=== PATIENT | female | born 1960 | race African-American/Black ===

== ENCOUNTER 2020-01-20 08:08 | Outpatient (CLI) | payer OTHER | END 2020-01-20 15:00 | disposition home or self-care (01) | LOC: LAB 08:08 | PROVIDERS: ATTEND Internal Medicine Hematology & Oncology | DX: D50.8 Other iron deficiency anemias (principal); D51.1 Vitamin B12 deficiency anemia due to selective vitamin B12 malabsorption with proteinuria; E03.8 Other specified hypothyroidism; E06.3 Autoimmune thyroiditis; C50.012 Malignant neoplasm of nipple and areola, left female breast; C78.01 Secondary malignant neoplasm of right lung; Z90.12 Acquired absence of left breast and nipple; D51.3 Other dietary vitamin B12 deficiency anemia; I50.89 Other heart failure; F33.8 Other recurrent depressive disorders ==